=== PATIENT | male | born 1990 | race Two or more races ===

== ENCOUNTER 2022-02-23 07:38 | Emergency (ER) | payer SELFPAY ==
[~2022-02-23] VITALS: Ht 170.2 cm; Wt 102.0 kg
[2022-02-23 11:52] VITALS: BP 141/82
[2022-02-23] MEDS ORDERED: FLUORESCEIN SOD OPTH TEST STRIP LEFTEYE ONE (12:30)
[2022-02-23] MEDS ORDERED: TETRACAINE HCL 0.5% OPTH(EYE) SOLN 4ML LEFTEYE ONE (12:30)
[2022-02-23] MEDS ORDERED: ERY05OO OP (12:35)
[2022-02-23] MEDS ORDERED: CLIN300C8 PO (12:43)
== END 2022-02-23 12:50 | disposition home or self-care (01) ==
LOC: ER 07:38
DX: S05.02XA Injury of conjunctiva and corneal abrasion without foreign body, left eye, initial encounter (principal); H00.035 Abscess of left lower eyelid; X58.XXXA Exposure to other specified factors, initial encounter; Y93.89 Activity, other specified; Y92.89 Other specified places as the place of occurrence of the external cause; Y99.8 Other external cause status